=== PATIENT | female | born 1990 | race Caucasian/White ===

== ENCOUNTER 2019-03-19 08:41 | Emergency (ER) | payer OTHER ==
[~2019-03-19] VITALS: Ht 162.6 cm; Wt 74.4 kg
[2019-03-19 08:45] VITALS: BP 106/61; Ht 162.6 cm; Wt 74.4 kg
== END 2019-03-19 10:00 | disposition home or self-care (01) ==
LOC: ED 08:41
DX: N64.4 Mastodynia (principal); N63.0 Unspecified lump in unspecified breast